=== PATIENT | male | born 1950 | race Caucasian/White ===

== ENCOUNTER 2016-07-20 10:32 | Outpatient (CLI) | payer MEDICARE, BC, OTHER | END 2016-07-20 10:33 | disposition home or self-care (01) | DX: I73.9 Peripheral vascular disease, unspecified (principal) ==

== ENCOUNTER 2016-08-05 10:51 | Outpatient (CLI) | payer MEDICARE, BC, OTHER | END 2016-08-05 10:52 | disposition home or self-care (01) | DX: E11.40 Type 2 diabetes mellitus with diabetic neuropathy, unspecified (principal); I10 Essential (primary) hypertension ==

== ENCOUNTER 2016-08-25 14:46 | Outpatient (CLI) | payer MEDICARE, BC, OTHER | END 2016-08-25 14:47 | disposition home or self-care (01) | DX: I73.9 Peripheral vascular disease, unspecified (principal) ==

== ENCOUNTER 2016-08-30 19:39 | Inpatient (IN) | payer MEDICARE, BC, OTHER ==
[2016-08-30] MEDS ORDERED: SODIUM CHLORIDE 0.9% 500 ML IV ONE (20:34)
[2016-08-30] MEDS ORDERED: HYDROCORTISONE SUCCINATE 100 MG/2 ML VIAL IVP STA (20:34)
[2016-08-30] MEDS ORDERED: SODIUM CHLORIDE 0.9% 1,000 ML IV ONE (20:34)
[2016-08-30] MEDS ORDERED: HYDROCORTISONE SUCCINATE 100 MG/2 ML VIAL IVP ONE ×2 (20:38→20:42)
[2016-08-30] MEDS ORDERED: WATER FOR INJECTION,STERILE 10 ML ONE (20:39)
[2016-08-30] MEDS ORDERED: PIPERACILLIN/TAZOBACTAM 3.375 GM in SODIUM CHLORIDE 0.9% MINIBAG 100 ML IV STA (21:12)
[2016-08-30] MEDS ORDERED: HALOPERIDOL 5 MG/ML VIAL ONE ×2 (21:29→21:30)
[2016-08-30] MEDS ORDERED: HALOPERIDOL 5 MG/ML VIAL IVP ONE ×2 (21:34→21:46)
[2016-08-30] MEDS ORDERED: MIDAZOLAM 2 MG/2 ML VIAL ONE (21:37)
[2016-08-30] MEDS ORDERED: MIDAZOLAM 2 MG/2 ML VIAL IVP STA (21:46)
[2016-08-30] MEDS ORDERED: LORazepam 2 MG/ML SYRINGE IVP STA (21:47)
[2016-08-30] MEDS ORDERED: LORazepam 2 MG/ML SYRINGE ONE (21:47)
[2016-08-30] MEDS ORDERED: VANCOMYCIN INJ 1.5 GM in SODIUM CHLORIDE 0.9% 500 ML IV STA (22:09)
[2016-08-30] MEDS ORDERED: MORPHINE 2 MG/ML SYRINGE IVP PRN (22:24)
[2016-08-30] MEDS ORDERED: ACETAMINOPHEN 325 MG TABLET PO PRN (22:24)
[2016-08-30] MEDS ORDERED: ONDANSETRON 4 MG/2 ML VIAL IVP PRN (22:24)
[2016-08-30] MEDS ORDERED: SODIUM CHLORIDE FLUSH 0.9% 10 ML SYRINGE IVP PRN (22:24)
[2016-08-30] MEDS ORDERED: oxyCODONE 5 MG TABLET PO PRN (22:28)
[2016-08-30] MEDS ORDERED: ACETAMINOPHEN 1,000 MG/100 ML 100 ML IV SCH (23:45)
[2016-08-31] MEDS: SODIUM CHLORIDE 0.9% 1,000 ML IV SCH ×3 (00:20→21:06)
[2016-08-31] MEDS ORDERED: LABETALOL 20 MG/4 ML SYRINGE IVP SCH (00:57)
[2016-08-31] MEDS ORDERED: VANCOMYCIN 500 MG VIAL ONE (01:51)
[2016-08-31] MEDS ORDERED: VANCOMYCIN 1 GM VIAL ONE (01:55)
[2016-08-31] MEDS ORDERED: PIPERACILLIN/TAZOBACTAM 4.5 GM in SODIUM CHLORIDE 0.9% MINIBAG 100 ML IV SCH (03:00)
[2016-08-31] MEDS ORDERED: ACETAMINOPHEN 1,000 MG/100 ML 100 ML IV PRN (03:29)
[2016-08-31] MEDS ORDERED: DEXTROSE 5% 1,000 ML IV PRN (03:56)
[2016-08-31] MEDS ORDERED: DEXTROSE GEL 37.5 GM TUBE PO PRN (03:56)
[2016-08-31] MEDS ORDERED: DEXTROSE 50% ABBOJECT 25 GM/50 ML SYRINGE IVP PRN (03:56)
[2016-08-31] MEDS ORDERED: GLUCAGON 1 MG/ML VIAL SUBQ PRN (03:56)
[2016-08-31] MEDS: PIPERACILLIN/TAZOBACTAM 4.5 GM in SODIUM CHLORIDE 0.9% MINIBAG 100 ML IV SCH ×4 (04:30→22:11)
[2016-08-31] MEDS: SODIUM CHLORIDE FLUSH 0.9% 10 ML SYRINGE IVP SCH ×3 (05:26→21:06)
[2016-08-31] MEDS ORDERED: VANCOMYCIN PER PHARMACY 1 GM in SODIUM CHLORIDE 0.9% 250 ML IV SCH ×2 (10:00→20:00)
[2016-08-31] MEDS ORDERED: GADOBUTROL 7.5 MMOL/7.5 ML VIAL IVP ONE (10:53)
[2016-08-31] MEDS: INSULIN ASPART 300 UNIT/3 ML PEN SUBQ SCH ×4 (11:20→21:51)
[2016-08-31] MEDS: POLYETHYLENE GLYCOL 3350 17 GM PACKET PO SCH (11:20)
[2016-08-31] MEDS: CALCITRIOL 0.25 MCG CAPSULE PO SCH (11:21)
[2016-08-31] MEDS: predniSONE 5 MG TABLET PO SCH (11:21)
[2016-08-31] MEDS: FAMOTIDINE 20 MG TABLET PO SCH ×2 (11:21→21:02)
[2016-08-31] MEDS: ATORVASTATIN 40 MG TABLET PO SCH (11:21)
[2016-08-31] MEDS: MULTIVITAMIN W/MINERALS TABLET PO SCH (11:21)
[2016-08-31] MEDS: SACCHAROMYCES BOULARDII 250 MG CAPSULE PO SCH ×2 (11:21→15:52)
[2016-08-31] MEDS: TACROLIMUS 0.5 MG CAPSULE PO SCH (11:35)
[2016-08-31] MEDS ORDERED: WARFARIN 1 MG TABLET PO SCH (14:00)
[2016-08-31] MEDS: hydrALAZINE INJ 20 MG/ML VIAL IVP PRN (15:48)
[2016-08-31] MEDS ORDERED: VANCOMYCIN INJ 1 GM in SODIUM CHLORIDE 0.9% 250 ML IV SCH (20:00)
[2016-08-31] MEDS ORDERED: TACROLIMUS 0.5 MG CAPSULE PO SCH (21:00)
[2016-08-31] MEDS ORDERED: MAGNESIUM OXIDE 400 MG TABLET PO SCH (21:18)
[2016-09-01] MEDS: SODIUM CHLORIDE 0.9% 1,000 ML IV SCH (01:24)
[2016-09-01] MEDS: PIPERACILLIN/TAZOBACTAM 4.5 GM in SODIUM CHLORIDE 0.9% MINIBAG 100 ML IV SCH ×2 (03:49→12:34)
[2016-09-01] MEDS: SODIUM CHLORIDE FLUSH 0.9% 10 ML SYRINGE IVP SCH ×2 (07:12→07:56)
[2016-09-01] MEDS: predniSONE 5 MG TABLET PO SCH (07:55)
[2016-09-01] MEDS: FAMOTIDINE 20 MG TABLET PO SCH (07:55)
[2016-09-01] MEDS: ATORVASTATIN 40 MG TABLET PO SCH (07:55)
[2016-09-01] MEDS: CALCITRIOL 0.25 MCG CAPSULE PO SCH (07:55)
[2016-09-01] MEDS: SACCHAROMYCES BOULARDII 250 MG CAPSULE PO SCH (07:56)
[2016-09-01] MEDS: POLYETHYLENE GLYCOL 3350 17 GM PACKET PO SCH (07:56)
[2016-09-01] MEDS: INSULIN ASPART 300 UNIT/3 ML PEN SUBQ SCH ×2 (07:57→12:37)
[2016-09-01] MEDS: TACROLIMUS 0.5 MG CAPSULE PO SCH (07:59)
[2016-09-01] MEDS: MULTIVITAMIN W/MINERALS TABLET PO SCH (07:59)
[2016-09-01] MEDS: hydrALAZINE INJ 20 MG/ML VIAL IVP PRN (07:59)
== END 2016-09-01 13:00 | disposition short-term general hospital (02) | DRG 539 ==
DX: M86.9 Osteomyelitis, unspecified (principal); G93.41 Metabolic encephalopathy; R41.0 Disorientation, unspecified; L03.116 Cellulitis of left lower limb; I12.9 Hypertensive chronic kidney disease with stage 1 through stage 4 chronic kidney disease, or unspecified chronic kidney disease; T82.856A Stenosis of peripheral vascular stent, initial encounter; N18.9 Chronic kidney disease, unspecified; N18.4 Chronic kidney disease, stage 4 (severe); Z94.0 Kidney transplant status; L03.032 Cellulitis of left toe; Z95.5 Presence of coronary angioplasty implant and graft; Z85.828 Personal history of other malignant neoplasm of skin; I73.9 Peripheral vascular disease, unspecified; I13.10 Hypertensive heart and chronic kidney disease without heart failure, with stage 1 through stage 4 chronic kidney disease, or unspecified chronic kidney disease; E11.22 Type 2 diabetes mellitus with diabetic chronic kidney disease; Z99.2 Dependence on renal dialysis; I25.10 Atherosclerotic heart disease of native coronary artery without angina pectoris; R90.82 White matter disease, unspecified; Z95.1 Presence of aortocoronary bypass graft; Z89.511 Acquired absence of right leg below knee; Z79.01 Long term (current) use of anticoagulants; Z79.84 Long term (current) use of oral hypoglycemic drugs; Z79.891 Long term (current) use of opiate analgesic; Z79.810 Long term (current) use of selective estrogen receptor modulators (SERMs); Z79.899 Other long term (current) drug therapy; Z78.1 Physical restraint status

== ENCOUNTER 2016-09-01 | Outpatient (CLI) | payer MEDICARE, BC, OTHER | END 2016-09-01 13:06 | disposition short-term general hospital (02) | CPT/HCPCS: A0170; A0425; A0428 ==

== ENCOUNTER 2021-11-04 09:06 | Outpatient (CLI) | payer MEDICARE, BC, OTHER ==
[2021-11-04 14:38] LABS: HCT - HEMATOCRIT 41.3 % (42.0-52.0); HGB - HEMOGLOBIN 13.3 g/dL (14.0-18.0); MEAN CORPUSCULAR HEMOGLOBIN 28.7 pg (27.0-31.0); MEAN CORPUSCULAR HGB CONC 32.2 g/dL (32.0-36.0); MEAN PLATELET VOLUME 10.7 fL (7.4-11.4); RED BLOOD COUNT 4.64 10^6/uL (4.70-6.10); WHITE BLOOD COUNT 9.6 x10^3/uL (4.8-10.8)
[2021-11-04 15:07] LABS: ESTIMATED AVERAGE GLUCOSE 134 mg/dL (70-100); HEMOGLOBIN A1c% 6.3 % (4.27-6.07)
[2021-11-04 15:17] LABS: CREATININE,URINE 95.5 mg/dL; PROTEIN/CREATININE RATIO,URINE 0.1 (<=0.2)
[2021-11-04 15:22] LABS: ALBUMIN 3.9 g/dL (3.2-5.5); CALCIUM 8.7 mg/dL (8.5-10.3); CREATININE 0.8 mg/dL (0.6-1.2); MAGNESIUM 1.7 mg/dL (1.7-2.8); PHOSPHORUS 3.8 mg/dL (2.5-4.6); POTASSIUM 4.3 mmol/L (3.5-5.0)
== END 2021-11-04 09:07 | disposition home or self-care (01) ==
LOC: LAB.S 09:06
PROVIDERS: ATTEND Internal Medicine Nephrology
DX: Z94.0 Kidney transplant status (principal)
CPT/HCPCS: 36415; 80069; 80197; 82570; 83036; 83735; 83970; 84156; 85027